=== PATIENT | female | born 1955 | race Caucasian/White ===

== ENCOUNTER 2025-04-10 16:40 | Emergency (ER) | payer MEDICARE, OTHER ==
[~2025-04-10] VITALS: Ht 165.1 cm; Wt 81.2 kg
[2025-04-10 16:45] VITALS: BP 149/78; PULSE 73; O2SAT 99
--- NOTE | 2025-04-10 16:47 | ELECTROCARDIOGRAPH REPORT ---
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 LUZMARIA Madrid Measurements Intervals [place] Rate: 77 P: 44 CA: 151 QRS: -2 QRSD: 96 T: -2 QT: 387 QTc: 438 Interpretive Statements Sinus rhythm Borderline repolarization abnormality Electronically Signed On 04-11-2025 12:58:[address] LUZMARIA Madrid Please click the below link to view image of tracing.
--- NOTE | 2025-04-10 17:08 | RADIOLOGY REPORT ---
CHEST RADIOGRAPH Indication: CP Technique: Single frontal view of the chest was obtained COMPARISON: None FINDINGS: Lines and Tubes: None Lungs: Clear Pleura: No effusion. No pneumothorax. Cardiomediastinal contours: Unremarkable Bones: Unremarkable IMPRESSION: No acute disease.
[2025-04-10 17:09] VITALS: RESP 14
[2025-04-10 17:30] LABS: MEAN PLATELET VOLUME 9.1 FL (7.4-10.4); RED CELL DISTRIBUTION WIDTH 14.4 % (11.5-14.5)
--- NOTE | 2025-04-10 17:40 | Physician Documentation ---
History of Present Illness ~ General Chief Complaint: Chest Pain Stated Complaint: CHEST PAIN Time Seen by MD: 17:14 Source: patient (1) Mode of Arrival: POV, Ambulatory History of Present Illness Initial Comments Patient comes in for evaluation of discomfort in her chest and neck. She reports that she has been having these episodes for several months, usually in the patient office rep hours while lying in bed. The sensation is one of fullness in the chest and the lower anterior neck, with the sensation continuing to her shoulder blades. Occasionally she gets it during the day, but normally she gets it at night twice per week. Today it started at 11:00 a.m. and continued throughout the day, with feelings of indigestion. She did not have any abdominal pain associated with this, but was quite nauseated through the day today. No vomiting or diarrhea, no dysuria, stools have been within normal limits. Patient does have a history of GERD, stopped taking her antacid medications last week. Of note, the patient saw ENT Dr. Chema hernandez for throat tightness and had a scope and was reassured that everything looked normal. Also possibly relevant is that the patient has been strictly watching her sugar and carbs, and then ate an entire bag of candy for Halloween. She states that she is currently asymptomatic, after burping. Medication Reconciliation Allergies: Coded Allergies: No Known Allergies (Unverified , 04/10/25) Past Medical History Past Medical History: High Cholesterol, Hypertension, GERD Other Past Medical History: prediabetes Smoking Status: Never smoker Alcohol Use: Occasionally Drug Use: none Review of Systems All Other Systems at this time: Reviewed and Negative Physical Exam Physical Exam Vital Signs: Temperature: 97.9, Source: Oral, Heart Rate: 73, Respiratory Rate: 14, BP: 149/78, Pulse Oximetry: 99, Weight: 81.200 Oxygen Flow Rate: 0 Physical Exam General: Pt is awake, alert, oriented x4 in no acute distress and well appearing. Head: Normocephalic and atraumatic. Eyes: Conjunctiva normal. ENT: Mucous membranes moist. Neck: Supple. No anterior neck tenderness, swelling, redness, or masses. Chest: Clear to auscultation bilaterally, without rales, rhonchi, or wheezes. Th ere is no accessory muscle use or retractions. Cardiac: Regular rate and rhythm without murmurs, gallops or rubs. Palpation of the chest wall is normal. Abd: Soft, nondistended, nontender even in the epigastrium, with normoactive bowel sounds. No guarding or rebound. Extremities: Within normal limits without cyanosis, clubbing, or edema. Skin: [place], warm and dry with no significant rash appreciated. Neuro: Cranial nerves II-XII grossly intact. The gait is normal. Progress Results/Orders Results/Orders Medications Received in ER Medications (Trade) Dose Ordered Sig/Ben Route PRN Reason Start Time Stop Time Status Last Admin Dose Admin (Protonix 40mg IV) 40 mg ONCE ONCE IV 04/10/25 17:45 04/10/25 17:46 DC 04/10/25 18:17 40 MG Vital Signs 04/10/25 04/10/25 04/10/25 16:45 17:09 19:39 Temp 97.9 97.9 Pulse 73 Resp 18 14 B/P (MAP) 149/78 Pulse Ox 99 O2 Flow Rate 0 Laboratory Tests Test 04/10/25 17:03 04/10/25 18:54 White Blood Count 7.8 Red Blood Count 3.95 L Hemoglobin 12.3 Hematocrit 37.4 Mean Corpuscular Volume 94.7 Mean Corpuscular Hemoglobin 31.2 H Mean Corpuscular Hemoglobin Concent 33.0 Red Cell Distribution Width 14.4 Platelet Count 279 Mean Platelet Volume 9.1 Neutrophils (%) (Auto) 58.2 Lymphocytes (%) (Auto) 32.0 Monocytes (%) (Auto) 7.3 Eosinophils (%) (Auto) 1.7 Basophils (%) (Auto) 0.8 Neutrophils # (Auto) 4.6 Lymphocytes # (Auto) 2.5 Monocytes # (Auto) 0.6 Eosinophils # (Auto) 0.1 Basophils # (Auto) 0.1 CBC Comment Sodium Level 139 Potassium Level 4.0 Chloride Level 104 Carbon Dioxide Level 27.9 Anion Gap 7 L Blood Urea Nitrogen 21 H Creatinine 1.11 H Estimated GFR/1.73 m2 49 BUN/Creatinine Ratio 18.9 Glucose Level 105 H Calcium Level 8.8 Troponin I High Sensitivity 5 6 Pro-B-Type Natriuretic Peptide 256 H Albumin 3.6 Chemistry Comments Troponin I High Sens Percent Delta 20 Troponin I Hi Sens Absolute Change 1 Re-Evaluation Re-Evaluation : Re-Evaluation Time: 18:00 Progress Awaiting laboratory results. Pt's case discussed with oncoming EP Dr. Doll, who will re-evaluate and arrange for appropriate discharge. Heart Score: Heart Score Response (Comments) Value History Moderate Suspicious 1 EKG Normal 0 Age >65 2 Risk Factors 1 or 2 risk factors 1 Troponin Normal limit 0 Total 4 Medical Decision Making Additional information obtaine: N/A Findings na Differential Diagnosis ACS, dissection, PE, gastritis Addendum Sign-out note I received sign-out on this patient at shift change. Briefly: Chest pain, likely gastritis. Pending repeat troponin. If normal okay to discharge home with pantoprazole. Repeat troponin is normal. I reviewed the rest of her workup, which was unremarkable. Re-evaluation: The patient is resting comfortably in bed, denies any chest pain at this time, states she feels better and would like to go home. I discussed the results of her testing, and she agrees with restarting pantoprazole and follow up with the primary care doctor for discussion of further heart testing. Return precautions given. Rajiv Doll MD Departure Time of Disposition: 19:26 Disposition: 01 HOME / SELF CARE / HOMELESS Impression: Primary Impression: Gastritis Condition: Improved Discharge Instructions: Gastritis, Adult Referrals: NO PRIMARY CARE PROVIDER (PCP) Education Educated: Patient Educated regarding: diagnosis, treatment, need for follow up Signature Scribe Signature: na Attestation: PEARL Moreno MD Apr 10, 2025 17:40 RAJIV DOLL MD Apr 10, 2025 19:27
[2025-04-10 17:52] LABS: CREATININE 1.11 MG/DL (0.40-0.90); PRO BRAIN NATRIURETIC PEPTIDE 256 PG/ML (0-125); TOTAL CARBON DIOXIDE 27.9 MMOL/L (24-32); eCRCL 44 ML/MIN; eGFR 49 ML/MIN
[2025-04-10 19:39] VITALS: TEMP 97.9
== END 2025-04-10 19:41 | disposition home or self-care (01) ==
LOC: ER 16:41
DX: K29.70 Gastritis, unspecified, without bleeding (principal); I10 Essential (primary) hypertension; E78.00 Pure hypercholesterolemia, unspecified; K21.9 Gastro-esophageal reflux disease without esophagitis; Z72.89 Other problems related to lifestyle
CPT/HCPCS: 36415; 71045; 80048; 83880; 84484; 85025; 93005; 96374; 99285; J2470